=== PATIENT | male | born 1975 | race Caucasian/White ===

== ENCOUNTER 2021-01-01 19:46 | Emergency (ER) | payer SELFPAY ==
[~2021-01-01] VITALS: Ht 182.9 cm; Wt 108.9 kg
[2021-01-01 19:46] VITALS: BP_SYST 113
--- NOTE | 2021-01-01 19:46 | NUR ---
Patient to ER bed 4 to gown for evaluation. Side rails up. Report given to self.
--- NOTE | 2021-01-01 19:50 | NUR ---
ER Dr. Holland at bedside examining patient.
--- NOTE | 2021-01-01 21:05 | NUR ---
arm sling applied to right arm. radial pulse noted. Capillary refill <3 seconds. Patient has ability to move non-splinted digits. Has sensation present to affected site. Skin color within normal limits. Applied for pain management control. Patient given written and verbal discharge instructions and verbalizes understanding. ER MD discussed with patient the results and treatment provided. Patient in stable condition. ID arm band removed. Rx of norco and motrin given. Patient educated on pain management and to follow up with PMD. Pain Scale 0. Opportunity for questions provided and answered. Medication side effect fact sheet provided.
== END 2021-01-01 21:05 | disposition home or self-care (01) ==
LOC: SED 19:46
DX: S40.011A Contusion of right shoulder, initial encounter (principal); W11.XXXA Fall on and from ladder, initial encounter; Y93.89 Activity, other specified; Y92.89 Other specified places as the place of occurrence of the external cause; Y99.8 Other external cause status
CPT/HCPCS: 73030; 99283